=== PATIENT | female | born 1935 | race Two or more races ===

== ENCOUNTER → 2017-10-18 10:06 | Outpatient (CLI) | payer OTHER | END | disposition home or self-care (01) | LOC: LAB 10:06 | DX: E03.8 Other specified hypothyroidism (principal); E11.65 Type 2 diabetes mellitus with hyperglycemia; E78.2 Mixed hyperlipidemia; D64.89 Other specified anemias; N39.0 Urinary tract infection, site not specified ==

== ENCOUNTER 2018-01-04 10:10 | Outpatient (CLI) | payer OTHER | END 2018-01-04 10:28 | disposition home or self-care (01) | LOC: LAB 10:10 | DX: E11.65 Type 2 diabetes mellitus with hyperglycemia (principal); N39.0 Urinary tract infection, site not specified; E03.8 Other specified hypothyroidism ==

== ENCOUNTER → 2018-01-05 | Outpatient (CLI) | payer OTHER | END | disposition home or self-care (01) | LOC: RAD 11:21 | DX: J45.998 Other asthma (principal) ==

== ENCOUNTER 2019-02-10 08:23 | Outpatient (CLI) | payer OTHER | END 2019-02-10 08:30 | disposition home or self-care (01) | LOC: LAB 08:23 | DX: N39.0 Urinary tract infection, site not specified (principal); E11.21 Type 2 diabetes mellitus with diabetic nephropathy; E78.2 Mixed hyperlipidemia; E03.8 Other specified hypothyroidism; D64.89 Other specified anemias; Z12.11 Encounter for screening for malignant neoplasm of colon ==

== ENCOUNTER → 2020-07-29 11:23 | Outpatient (CLI) | payer OTHER | END | disposition home or self-care (01) | LOC: LAB 11:23 | PROVIDERS: ATTEND Specialist | DX: E03.8 Other specified hypothyroidism (principal); N39.0 Urinary tract infection, site not specified; D64.89 Other specified anemias; Z12.11 Encounter for screening for malignant neoplasm of colon; E78.2 Mixed hyperlipidemia ==

== ENCOUNTER → 2021-01-29 11:19 | Outpatient (CLI) | payer OTHER | END | disposition home or self-care (01) | LOC: LAB 11:19 | PROVIDERS: ATTEND Specialist | DX: E78.2 Mixed hyperlipidemia (principal); E11.65 Type 2 diabetes mellitus with hyperglycemia; D64.89 Other specified anemias; E03.8 Other specified hypothyroidism ==

== ENCOUNTER → 2021-01-30 11:16 | Outpatient (CLI) | payer OTHER | END | disposition home or self-care (01) | LOC: LAB 11:16 | PROVIDERS: ATTEND Specialist | DX: E11.65 Type 2 diabetes mellitus with hyperglycemia (principal); D64.89 Other specified anemias; E03.8 Other specified hypothyroidism; E78.2 Mixed hyperlipidemia; Z12.11 Encounter for screening for malignant neoplasm of colon; E11.21 Type 2 diabetes mellitus with diabetic nephropathy ==

== ENCOUNTER 2021-05-04 10:52 | Outpatient (CLI) | payer OTHER | END 2021-05-04 10:54 | disposition home or self-care (01) | LOC: LAB 10:52 | PROVIDERS: ATTEND Specialist | DX: E03.8 Other specified hypothyroidism (principal); E78.2 Mixed hyperlipidemia; E11.65 Type 2 diabetes mellitus with hyperglycemia ==

== ENCOUNTER 2021-07-17 10:27 | Outpatient (CLI) | payer OTHER | END 2021-07-17 10:31 | disposition home or self-care (01) | LOC: LAB 10:27 | PROVIDERS: ATTEND Specialist | DX: E03.8 Other specified hypothyroidism (principal); E11.65 Type 2 diabetes mellitus with hyperglycemia; E78.2 Mixed hyperlipidemia ==

== ENCOUNTER 2022-01-15 08:50 | Outpatient (CLI) | payer OTHER | END 2022-01-15 08:51 | disposition home or self-care (01) | LOC: LAB 08:50 | PROVIDERS: ATTEND Specialist | DX: E03.9 Hypothyroidism, unspecified (principal); Z12.11 Encounter for screening for malignant neoplasm of colon ==

== ENCOUNTER 2022-01-18 09:05 | Outpatient (CLI) | payer OTHER | END 2022-01-18 09:06 | disposition home or self-care (01) | LOC: LAB 09:05 | PROVIDERS: ATTEND Specialist | DX: E03.9 Hypothyroidism, unspecified (principal); Z12.11 Encounter for screening for malignant neoplasm of colon ==

== ENCOUNTER 2022-01-21 13:51 | Outpatient (CLI) | payer OTHER | END 2022-01-21 13:58 | disposition home or self-care (01) | LOC: RAD 13:51 | PROVIDERS: ATTEND Orthopaedic Surgery | DX: M25.521 Pain in right elbow (principal) ==

== ENCOUNTER → 2022-01-25 09:36 | Outpatient (CLI) | payer OTHER | END | disposition home or self-care (01) | LOC: LAB 09:36 | PROVIDERS: ATTEND Orthopaedic Surgery | DX: Z76.89 Persons encountering health services in other specified circumstances (principal); D64.9 Anemia, unspecified; E88.9 Metabolic disorder, unspecified; D68.8 Other specified coagulation defects; N39.0 Urinary tract infection, site not specified; A49.02 Methicillin resistant Staphylococcus aureus infection, unspecified site; E11.9 Type 2 diabetes mellitus without complications; I10 Essential (primary) hypertension; I49.9 Cardiac arrhythmia, unspecified ==

== ENCOUNTER → 2022-01-25 | Outpatient (CLI) | payer OTHER ==
[~2022-01-25] MED LIST: ATACAND16 MG PO; ATORVASTATIN CA10 MG PO; SYNTHROID75 MCG PO
== END | disposition home or self-care (01) ==
LOC: NUCLEAR 10:53
PROVIDERS: ATTEND Orthopaedic Surgery
DX: M81.0 Age-related osteoporosis without current pathological fracture (principal)

== ENCOUNTER 2022-02-09 06:25 | Day surgery (SDC) | payer OTHER ==
[~2022-02-09] VITALS: Ht 160 cm; Wt 53.5 kg
== END 2022-02-09 13:10 | disposition home or self-care (01) ==
LOC: CIR.AMB 06:25
PROVIDERS: ATTEND Orthopaedic Surgery
DX: M70.21 Olecranon bursitis, right elbow (principal); Z88.0 Allergy status to penicillin; Z88.6 Allergy status to analgesic agent; I10 Essential (primary) hypertension; E78.00 Pure hypercholesterolemia, unspecified; Z86.16 Personal history of COVID-19; E03.9 Hypothyroidism, unspecified; Z20.822 Contact with and (suspected) exposure to COVID-19

== ENCOUNTER 2022-08-13 14:35 | Outpatient (CLI) | payer OTHER | END 2022-08-13 14:36 | disposition home or self-care (01) | LOC: LAB 14:35 | PROVIDERS: ATTEND Radiology Diagnostic Radiology | DX: M75.42 Impingement syndrome of left shoulder (principal) ==

== ENCOUNTER 2022-08-18 09:54 | Outpatient (CLI) | payer OTHER | END 2022-08-18 11:12 | disposition home or self-care (01) | LOC: MRI 09:54 | PROVIDERS: ATTEND Orthopaedic Surgery | DX: M79.641 Pain in right hand (principal); M79.642 Pain in left hand; M25.512 Pain in left shoulder; M25.551 Pain in right hip; M25.552 Pain in left hip; M25.561 Pain in right knee; M25.562 Pain in left knee | CPT/HCPCS: 73030; 73120; 73130; 73223; 73521; 73564; Q9965; 73222 ==

== ENCOUNTER 2023-04-23 09:39 | Outpatient (CLI) | payer OTHER | END 2023-04-23 09:44 | disposition home or self-care (01) | LOC: LAB 09:39 | PROVIDERS: ATTEND Specialist | DX: E03.9 Hypothyroidism, unspecified (principal); E11.21 Type 2 diabetes mellitus with diabetic nephropathy; N39.9 Disorder of urinary system, unspecified; E78.2 Mixed hyperlipidemia; E11.65 Type 2 diabetes mellitus with hyperglycemia; D64.9 Anemia, unspecified; J45.998 Other asthma; K75.81 Nonalcoholic steatohepatitis (NASH); N39.0 Urinary tract infection, site not specified ==

== ENCOUNTER → 2023-08-12 09:22 | Outpatient (CLI) | payer OTHER ==
[2023-08-12 10:30] LABS: URINE APPEARANCE Clear; URINE BILIRRUBIN Negative (NEGATIVE); URINE BLOOD NHT; URINE COLOR Yellow; URINE GLUCOSE Negative (NEGATIVE); URINE LEUKOCYTE Moderate; URINE NITRATE Negative; URINE PROTEIN Negative (NEGATIVE); URINE UROBILINOGEN 0.2 E.U./dl
[2023-08-12 10:34] LABS: URINE BACTERIA 908.3 uL (0.0-1933); URINE RBC 9.1 uL (0.0-20.8); URINE WBC 26.4 uL (0.0-23.2)
[2023-08-12 10:34] LABS: HEMATOCRIT 37.6 % (36.0-45.00); HEMOGLOBIN 12.5 g/dL (12.0-15.00); MEAN CELL VOLUME 88.9 fL (80.00-100.00); MEAN CORPUSCULAR HEMOGLOBIN 29.5 pg (27.00-32.0); MEAN CORPUSCULAR HGB CONC 33.2 g/dl (32.0-36.0); PLATELET COUNT 318 K/uL (150-450); RED BLOOD COUNT 4.23 M/uL (4.00-6.00); RED CELL DISTRIBUTION WIDTH 14.6 % (11.5-14.5)
[2023-08-12 11:29] LABS: ALKALINE PHOSPHATASE 74 U/L (50-136); ALT/SGPT 21 U/L (12-78); ANION GAP 10 (10.0-20.0); AST/SGOT 17 U/L (15-37); BILIRUBIN TOTAL 0.52 mg/dL (0.3-1.2); BLOOD UREA NITROGEN 15 mg/dL (7-18); BUN CREA RATIO 19 (7.0-25.0); CALCIUM 9.8 mg/dL (8.5-10.1); CARBON DIOXIDE 29 mEq/L (21-32); CHLORIDE 107 mmol/L (98-107); CREATININE SERUM 0.78 mg/dL (0.55-1.02); FREE TRIODOTIRONINE 2.09 pg/ml (2.18-3.98); GFR 69.86; GLOBULINA 3.5 G/DL (2.4-3.5); GLUCOSE FASTING 93 mg/dL (65-100); OSMOLALITY SERUM 282 MOSM/KG (275-295); POTASSIUM 4.67 mEq/L (3.5-5.1); SODIUM 141 mmol/L (136-145); T4 FREE 0.95 NG/ML (0.76-1.46); TOTAL PROTEIN 7.5 gm/dL (6.4-8.2)
[2023-08-12 11:34] LABS: C-REACTIVE PROTEIN < 0.29 MG/DL (0.00-0.29)
== END | disposition home or self-care (01) ==
LOC: LAB 09:22
PROVIDERS: ATTEND Specialist
DX: N39.9 Disorder of urinary system, unspecified (principal); D64.89 Other specified anemias; E11.21 Type 2 diabetes mellitus with diabetic nephropathy; E03.8 Other specified hypothyroidism; M00.80 Arthritis due to other bacteria, unspecified joint; E11.69 Type 2 diabetes mellitus with other specified complication

== ENCOUNTER → 2023-11-14 09:20 | Outpatient (CLI) | payer OTHER ==
[2023-11-14 10:13] LABS: HEMATOCRIT 35.1 % (36.0-45.00); HEMOGLOBIN 11.7 g/dL (12.0-15.00); MEAN CELL VOLUME 88.2 fL (80.00-100.00); MEAN CORPUSCULAR HEMOGLOBIN 29.4 pg (27.00-32.0); MEAN CORPUSCULAR HGB CONC 33.3 g/dl (32.0-36.0); PLATELET COUNT 382 K/uL (150-450); RED BLOOD COUNT 3.98 M/uL (4.00-6.00); RED CELL DISTRIBUTION WIDTH 13.9 % (11.5-14.5)
[2023-11-14 10:18] LABS: PH,URINE 5.5 (5.0-8.0); URINE APPEARANCE Clear; URINE BILIRRUBIN Negative (NEGATIVE); URINE BLOOD Negative; URINE COLOR Yellow; URINE GLUCOSE Negative (NEGATIVE); URINE LEUKOCYTE Trace; URINE NITRATE Negative; URINE PROTEIN Negative (NEGATIVE); URINE UROBILINOGEN 0.2 E.U./dl
[2023-11-14 10:22] LABS: URINE EPITHELIAL CELLS 21.9 uL (0.0-38.8); URINE RBC 12.6 uL (0.0-20.8); URINE WBC 99.7 uL (0.0-23.2)
[2023-11-14 11:03] LABS: ALBUMIN 3.9 gm/dL (3.4-5.0); BILIRUBIN TOTAL 0.36 mg/dL (0.3-1.2); CALCIUM 9.9 mg/dL (8.5-10.1); CHOL HDL RATIO 4.7 (0-5.0); CREATININE SERUM 0.71 mg/dL (0.55-1.02); FREE TRIODOTIRONINE 2.44 pg/ml (2.18-3.98); GFR 77.87; GLOBULINA 3.4 G/DL (2.4-3.5); POTASSIUM 4.11 mEq/L (3.5-5.1); T4 FREE 0.96 NG/ML (0.76-1.46); TOTAL PROTEIN 7.3 gm/dL (6.4-8.2); TSH 3.35 uIU/mL (0.358-3.74)
[2023-11-14 11:09] LABS: C-REACTIVE PROTEIN 0.58 MG/DL (0.00-0.29)
== END | disposition home or self-care (01) ==
LOC: RAD 09:20
PROVIDERS: ATTEND Specialist
DX: J45.998 Other asthma (principal)